=== PATIENT | male | born 1960 | race Two or more races ===

== ENCOUNTER 2021-11-02 11:15 | Inpatient (IN) | payer OTHER ==
[~2021-11-02] VITALS: Ht 170.2 cm; Wt 86.2 kg
[2021-11-02] MEDS ORDERED: CRESTOR10 MG PO (12:47)
[2021-11-02] MEDS ORDERED: CANDESARTAN CILE8 MG PO (12:47)
[2021-11-07] MEDS ORDERED: FLONASE16 GM (07:47)
[2021-11-07] MEDS ORDERED: RESTORIL30 MG (07:48)
== END 2021-11-09 12:10 | disposition home or self-care (01) | DRG 331 ==
LOC: O/R 11-07 05:54 → SURH 11-07 08:45 → SURG 11-07 10:46 → SURH 11-07 11:15 → SURG 11-09 12:10
PROVIDERS: ADMIT Colon & Rectal Surgery; ATTEND Colon & Rectal Surgery
PROC: 0DBP4ZZ Excision of Rectum, Percutaneous Endoscopic Approach (ICD-10-PCS; 2021-11-07)
PROC: 0DTN4ZZ Resection of Sigmoid Colon, Percutaneous Endoscopic Approach (ICD-10-PCS; principal; 2021-11-07 08:45)
DX: D12.5 Benign neoplasm of sigmoid colon (principal); K57.30 Diverticulosis of large intestine without perforation or abscess without bleeding; I11.9 Hypertensive heart disease without heart failure; E78.00 Pure hypercholesterolemia, unspecified